=== PATIENT | male | born 1970 | race American Indian/Alaskan Native ===

== ENCOUNTER 2016-12-14 10:24 | Emergency (ER) | payer OTHER ==
[2016-12-14 11:02] LABS: Basophils % (Auto) 1.5 % (0.0-1.8); Eosinophils % (Auto) 3.7 % (0.0-4.3); Hematocrit 49.2 % (35.5-45.6); Hemoglobin 16.5 gm/dl (11.8-15.2); Mean Corpuscular HGB Conc 33 % (32-34); Mean Corpuscular Hemoglobin 29 pg (28-32); Mean Corpuscular Volume 87 fl (84-94); Platelet Count 175 K/mm3 (140-440); Red Blood Count 5.68 M/mm3 (3.65-5.03); Red Cell Distribution Width 13.4 % (13.2-15.2); White Blood Count 4.7 K/mm3 (4.5-11.0)
[2016-12-14 11:30] LABS: Anion Gap 19 mmol/L; Blood Urea Nitrogen 9 mg/dL (9-20); Calcium 9.1 mg/dL (8.4-10.2); Carbon Dioxide 23 mmol/L (22-30); Chloride 103.2 mmol/L (98-107); Glucose 102 mg/dL (75-100); Sodium 141 mmol/L (137-145)
[2016-12-14] MEDS ORDERED: BABY ASPIRIN PO ONE (13:48)
--- NOTE | 2016-12-14 14:12 | XRay Report ---
ROUTINE CHEST, TWO VIEWS: SOB. PA and lateral views demonstrate the heart and mediastinal contour to be of normal size and shape. The lungs are clear and fully expanded and the soft tissues and bony structures are normal. IMPRESSION: Normal study.
[2016-12-14 15:59] LABS: Alanine Aminotransferase 17 units/L (7-56); Albumin 4.4 g/dL (3.9-5); Albumin/Globulin Ratio 1.5 %; Alkaline Phosphatase 100 units/L (35-129); Lipase 24 units/L (13-60); Total Protein 7.4 g/dL (6.3-8.2)
[2016-12-14 16:17] LABS: Bilirubin,Direct < 0.2 mg/dL (0-0.2)
--- NOTE | 2016-12-14 16:25 | Emergency Department Report ---
ED Chest Pain HPI - General Chief Complaint: Dyspnea/Respdistress Stated Complaint: SOB Time Seen by Provider: 12/14/16 13:11 Source: patient Mode of arrival: Ambulatory Limitations: No Limitations - History of Present Illness Initial Comments: This is a 46 year-old male presents to the emergency department with complaint of shortness of breath, chest tightness, left arm numbness and some trouble swallowing that all began earlier today while the patient was driving. He pulled over to the side of the road and open the windows. He was feeling dizzy as if he was going to pass out but never did so. He did not take anything prior to presentation and then drove himself in to be seen. He says that he is feeling improved but the symptoms have not quite resolved. He also had some concern as there was some upper abdominal and/or epigastric discomfort and he says that he was regurgitating some "gastric secretions." The patient has a history of anxiety but says that he has never had any symptoms from his anxiety such as this. The patient has a past medical history of hypertension. The patient follows up with Dr. Raza of [facility] cardiology for his hypertension and has had a stress test in the past secondary to some recurrent chest discomfort and the stress test he had in May of this year was normal. He has a scheduled appointment is Saturday with a different dorr operator for an echocardiogram and a "second opinion." No recent travel or sick contacts at home. Severity scale (0 -10): 0 - Related Data Allergies Allergy/AdvReac Type Severity Reaction Status Date / Time No Known Allergies Allergy Verified 01/07/16 01:28 Heart Score - HEART Score History: Moderately suspicious EKG: Normal Age: < 45 Risk factors: 1-2 risk factors Troponin: < normal limit HEART Score: 2 - Critical Actions Critical Actions: 0-3 pts:0.9-1.7%risk of adverse cardiac event.Candidate for discharge ED Review of Systems ROS: Stated complaint: SOB Other details as noted in HPI Comment: All other systems reviewed and negative Constitutional: denies: chills, fever Eyes: denies: eye pain, eye discharge, vision change ENT: denies: ear pain, throat pain Respiratory: shortness of breath. denies: cough, wheezing Cardiovascular: chest pain Gastrointestinal: abdominal pain Genitourinary: denies: urgency, dysuria Musculoskeletal: denies: back pain, joint swelling, arthralgia Skin: denies: rash, lesions Neurological: denies: headache, weakness, paresthesias ED Past Medical Hx - Past Medical History Hx Hypertension: Yes - Social History Smoking Status: Never Smoker Substance Use Type: None ED Physical Exam - General Limitations: No Limitations - Other Other exam information: GENERAL: The patient is well-developed well-nourished. HENT: Normocephalic. Atraumatic. Patient has moist mucous membranes. EYES: Extraocular motions are intact. Pupils equal reactive to light bilaterally. NECK: Supple. Trachea is midline. CHEST/LUNGS: Clear to auscultation. No tachypnea or accessory muscle use. There is no respiratory distress noted. HEART/CARDIOVASCULAR: Regular. There is no tachycardia. There is no gallop rub or murmur. ABDOMEN: Abdomen is soft, nontender. Patient has normal bowel sounds. There is no abdominal distention. SKIN: Skin is warm and dry. NEURO: The patient is awake, alert, and oriented. The patient is cooperative. The patient has no focal neurologic deficits. The patient has normal speech and gait. MUSCULOSKELETAL: There is no tenderness or deformity. There is no limitation range of motion. There is no evidence of acute injury. ED Course Vital Signs 12/14/16 12/14/16 12/14/16 10:37 13:00 13:05 Temperature 98.6 F Pulse Rate 69 56 L 56 L Respiratory 20 16 18 Rate Blood Pressure 138/98 Blood Pressure 106/73 [Right] O2 Sat by Pulse 100 99 Oximetry 12/14/16 12/14/16 12/14/16 13:30 14:00 14:30 Temperature Pulse Rate 56 L 52 L 61 Respiratory 20 17 11 L Rate Blood Pressure 106/73 106/73 127/84 Blood Pressure [Right] O2 Sat by Pulse 99 97 96 Oximetry 12/14/16 12/14/16 12/14/16 15:00 15:30 16:41 Temperature Pulse Rate 51 L 57 L 88 Respiratory 15 14 18 Rate Blood Pressure 135/82 135/82 Blood Pressure 126/71 [Right] O2 Sat by Pulse 99 98 99 Oximetry HAYDEE score - Haydee Score Age > 65: (0) No Aspirin use within the Past 7 Days: (0) No 3 or more CAD Risk Factors: (0) No 2 or more Angina events in past 24 hrs: (1) Yes Known CAD with more than 50% Stenosis: (0) No Elevated Cardiac Markers: (0) No ST Deviation Greater than 0.5mm: (0) No HAYDEE Score: 1 ED Medical Decision Making - Lab Data Result diagrams: 12/14/16 10:46 12/14/16 10:46 - EKG Data -: EKG Interpreted by Me EKG shows normal: sinus rhythm (with sinus arrhythmia), axis, intervals, QRS complexes, ST-T waves Rate: normal - EKG Data When compared to previous EKG there are: previous EKG unavailable Interpretation: normal EKG - Radiology Data Radiology results: image reviewed interpreted by me: Chest x-ray does not show any acute process. There are no pleural effusions, obvious pneumonia and there is no pneumothorax. - Medical Decision Making 46-year-old male presents emergency department with some chest pain, shortness of breath, nausea and possibly some anxiety. He had a workup that included labs , physical exam, EKG and imaging. EKG does not show any signs of ST elevation TN, ischemia or dysrhythmia. Chest x-ray does not show any acute process. Labs are unremarkable including negative troponins 2 and a negative d-dimer. He was given an aspirin to protect his heart. He is reevaluated multiple times for multiple hours and has remained stable and does not appear in any acute distress. The patient is seen sleeping and has to be woken up for reassessment. He has a negative stress test with the last 6 months and is set up for an echocardiogram this coming Saturday. He is low on the Chamberlain score criteria and has a HAYDEE score of one of his penis consider angina and 0 left not. For these reasons the patient appears safe for discharge home. He has been encouraged to return to the emergency Department with any worsening of symptoms or any acute distress. - Differential Diagnosis TN, PE, gastritis, anxiety, pneumonia Critical Care Time: No Critical care attestation.: If time is entered above; I have spent that time in minutes in the direct care of this critically ill patient, excluding procedure time. ED Disposition Clinical Impression: Shortness of breath Chest pain Qualifiers: Chest pain type: unspecified Qualified Code(s): R07.9 - Chest pain, unspecified Disposition: TO HOME OR SELFCARE Is pt being admited?: No Condition: Stable Instructions: Chest Pain (ED), Dyspnea (ED) Additional Instructions: Please follow-up with your primary care doctor in the next few days. Follow up with cardiology as previously scheduled this coming Saturday. Return to the emergency Department with any worsening of your symptoms or any acute distress. Referrals: PRIMARY CARE, [Primary Care Provider] - [facility] Time of Disposition: 16:29
[2016-12-14 16:42] VITALS: BP 126/71
== END 2016-12-14 16:42 | disposition home or self-care (01) ==
LOC: ED 10:24
DX: R07.89 Other chest pain (principal); R06.02 Shortness of breath; I10 Essential (primary) hypertension
CPT/HCPCS: 36415; 71020; 80048; 80074; 83690; 84484; 85025; 85379; 93005; 93010